=== PATIENT | female | born 1930 | race Caucasian/White ===

== ENCOUNTER 2018-03-12 07:07 | Day surgery (SDC) | payer MEDICARE, BC ==
[~2018-03-12] VITALS: Ht 165.1 cm; Wt 58.9 kg
[2018-03-12] MEDS ORDERED: LIDOcaine 1% (10mg/ml)w/preservative injection 20ml MDV SQ ONE (07:25)
[2018-03-12 07:30] VITALS: BP 147/69
[2018-03-12] MEDS ORDERED: albumin (human) 25% 100 ML IV solution IV PRN (07:40)
[2018-03-12] MEDS ORDERED: normal saline 1000ml 1,000 ML IV PRN (07:40)
[2018-03-12] MEDS ORDERED: DOXY20TA3 PO (08:00)
[2018-03-12] MEDS ORDERED: DEXL60CA3 PO (08:00)
[2018-03-12] MEDS ORDERED: HYDR25TA4 PO (08:00)
[2018-03-12] MEDS ORDERED: LISI10TA4 PO (08:00)
== END 2018-03-12 10:20 | disposition home or self-care (01) ==
LOC: SSTAY O 07:07
PROVIDERS: ATTEND Radiology Diagnostic Radiology
DX: R14.0 Abdominal distension (gaseous) (principal); C78.7 Secondary malignant neoplasm of liver and intrahepatic bile duct; Z85.3 Personal history of malignant neoplasm of breast
CPT/HCPCS: 76705; J7030; A6257; J2001

== ENCOUNTER 2018-04-01 07:01 | Day surgery (SDC) | payer MEDICARE, BC ==
[~2018-04-01] VITALS: Ht 165.1 cm; Wt 58.6 kg
[~2018-04-01 07:01] MED LIST: DEXL60CA3 PO; DOXY20TA3 PO; HYDR25TA4 PO; LISI10TA4 PO
[2018-04-01] MEDS ORDERED: normal saline 1000ml 1,000 ML IV PRN (07:30)
[2018-04-01 07:49] VITALS: BP 132/74
[2018-04-01 08:38] LABS: ALBUMIN 3.1 G/DL (3.4-5.0); ANION GAP 9 (8-16); BLOOD UREA NITROGEN 21 MG/DL (7-18); BUN/CREATININE RATIO 16.8 (6.6-38.0); CALCIUM 9.1 MG/DL (8.5-10.1); CHLORIDE 101 MMOL/L (99-107); CREATININE 1.25 MG/DL (0.40-0.90); GLUCOSE 99 MG/DL (70-104); POTASSIUM 3.8 MMOL/L (3.5-5.1); SODIUM 141 MMOL/L (135-145); TOTAL CARBON DIOXIDE 30.6 MMOL/L (24-32); eGFR 41 ML/MIN
[2018-04-01 08:49] LABS: MEAN CORPUSCULAR HEMOGLOBIN 33.5 PG (27.0-31.0); MEAN CORPUSCULAR HGB CONC 33.4 % (33.0-36.5); MEAN CORPUSCULAR VOLUME 100.4 FL (78-98); MEAN PLATELET VOLUME 8.8 FL (7.4-10.4); PRE OP HEMATOCRIT 44.7 % (35.0-45.0); PRE OP HEMOGLOBIN 14.9 g/dL (12.0-16.0); PRE OP PLATELET COUNT 309 X10'3 (140-440); RED BLOOD COUNT 4.45 X10'6 (4.20-5.60); RED CELL DISTRIBUTION WIDTH 17.8 % (11.5-14.5)
[2018-04-01 09:13] LABS: TOTAL CELLS COUNTED 100
[2018-04-01 09:14] LABS: ANISOCYTOSIS 2+; PLATELET ESTIMATE NORMAL; SMUDGE CELLS 1+
[2018-04-01] MEDS ORDERED: LIDOcaine 1% 30ml preserv. free vial SQ ONE (09:30)
[2018-04-01 10:06] VITALS: BP 129/82
[2018-04-01 10:15] VITALS: BP 115/53
[2018-04-01 10:25] VITALS: BP 119/56
[2018-04-01 10:30] VITALS: BP 120/67
[2018-04-01 10:45] VITALS: BP 126/76
== END 2018-04-01 10:55 | disposition home or self-care (01) ==
LOC: SSTAY O 07:01
PROVIDERS: ATTEND Radiology Vascular & Interventional Radiology
DX: R18.8 Other ascites (principal); I10 Essential (primary) hypertension; K21.9 Gastro-esophageal reflux disease without esophagitis; Z90.11 Acquired absence of right breast and nipple; Z90.49 Acquired absence of other specified parts of digestive tract; Z90.711 Acquired absence of uterus with remaining cervical stump; Z79.2 Long term (current) use of antibiotics; Z92.21 Personal history of antineoplastic chemotherapy; Z85.3 Personal history of malignant neoplasm of breast; Z79.899 Other long term (current) drug therapy; Z98.890 Other specified postprocedural states
CPT/HCPCS: 36415; 49083; 80048; 85025; J3490; J7030